=== PATIENT | female | born 1965 | race American Indian/Alaskan Native ===

== ENCOUNTER 2017-07-15 12:17 | Inpatient (IN) | payer MEDICAID, MEDICARE ==
[2017-07-15 12:24] VITALS: BMI 30.6
--- NOTE | 2017-07-15 13:08 | C.PDOC ---
History Of Present Illness 51 yo female w/PMHx of opioid abuse come in request heroin detox. Pt sts, last use of heroin was yesterday. Pt admits, using other different drugs. Otherwise, pt denies suicidal ideation or attempts. At present time, pt appears slightly anxious, saying " I did not had any drugs since yesterday'. Otherwise, pt deneis headache, dizziness, CP, SOB, dyspnea, diaphoresis, palpitation, abd. pain, N/V/D. Ambulatory in ED, not in any apparent distress. Time Seen by Provider: 07/15/17 12:34 Chief Complaint (Nursing): Substance Abuse History Per: Patient Past Medical History Reviewed: Historical Data, Nursing Documentation, Vital Signs Vital Signs: Last Vital Signs Temp 98.2 F 07/15/17 12:24 Pulse 88 07/15/17 12:24 Resp 18 07/15/17 12:24 BP 140/86 07/15/17 12:24 Pulse Ox 99 07/15/17 13:16 - Medical History PMH: Arthritis, Bronchitis, Hypothyroidism (NO MEDICATIONS), Kidney Stones ( LITHROTRYPSY DONE IN PAST), Chronic Kidney Disease Denies: Anxiety, Diabetes, Hepatitis, HIV, HTN, Seizures, Sexually Transmitted Disease Surgical History: Cholecystectomy, Endoscopy, - [facility] Procedures DETOXIFICATION SERVICES FOR SUBSTANCE ABUSE TREATMENT (10/26/16) GROUP PASSENGER SERVICE AGENT FOR SUBSTANCE ABUSE TREATMENT, PSYCHOEDUCATION (10/26/16) Family History: States: Unknown Family Hx - Social History Hx Alcohol Use: Yes Hx Substance Use: Yes (MARIJUANA USE) - Immunization History Hx Tetanus Toxoid Vaccination: No Hx Influenza Vaccination: No Hx Pneumococcal Vaccination: No Review Of Systems Except As Marked, All Systems Reviewed And Found Negative. Constitutional: Negative for: Fever, Chills Eyes: Negative for: Vision Change ENT: Negative for: Throat Pain, Throat Swelling Cardiovascular: Negative for: Chest Pain, Palpitations, Orthopnea, Paroxysmal Noc. Dyspnea, Light Headedness Respiratory: Negative for: Cough, Shortness of Breath, Wheezing Gastrointestinal: Negative for: Nausea, Vomiting, Abdominal Pain Genitourinary: Negative for: Frequency Neurological: Negative for: Altered Mental Status Psych: Positive for: Withdrawal. Negative for: Suicidal ideation Physical Exam - Physical Exam Appears: Well, Non-toxic, No Acute Distress Skin: Normal Color, Warm, Dry, No Rash Eye(s): bilateral: PERRL Nose: Normal Throat: No Drooling Neck: Supple Cardiovascular: Rhythm Regular Respiratory: No Decreased Breath Sounds, No Accessory Muscle Use, No Stridor, No Wheezing Gastrointestinal/Abdominal: Soft, No Tenderness, No Distention, No Guarding Back: No CVA Tenderness Extremity: Normal ROM, No Deformity, No Swelling Neurological/Psych: Oriented x3, Normal Speech ED Course And Treatment - Laboratory Results Result Diagrams: 07/15/17 13:16 07/15/17 13:16 O2 Sat by Pulse Oximetry: 99 Progress Note: On re-eavluation, pt remained stable, afebrile, hemodynamicaly stable. AAO#3, cooperative and appropriate. Blood work review and appears baseline. Pt was medically cleared for psych evaluation. children's service worker evaluated pt and admission to s/o recommend w/Dx: Acute opioid dependance. Disposition - Disposition Disposition: HOSPITALIZED Disposition Time: 14:47 Condition: STABLE Forms: [email or web address] (Welsh) - Clinical Impression Clinical Impression: Opioid abuse
[2017-07-15 13:22] LABS: BASO # 0.1 K/uL (0.0-0.2); BASO % 0.9 % (0.0-2.0); EOS # 0.1 K/uL (0.0-0.7); EOS % 0.7 % (0.0-4.0); HEMATOCRIT 41.4 % (34.0-47.0); LYMPH # 2.4 K/uL (1.0-4.3); LYMPH % 16.3 % (20.0-40.0); MEAN CELL VOLUME 99.1 fL (81.0-99.0); MEAN CORPUSCULAR HEMOGLOBIN 34.2 pg (27.0-31.0); MEAN CORPUSCULAR HGB CONC 34.5 g/dL (33.0-37.0); MEAN PLATELET VOLUME 10.4 fL (7.2-11.7); MONO % 7.2 % (0.0-10.0); RED CELL DISTRIBUTION WIDTH 12.7 % (11.5-14.5); WHITE BLOOD COUNT 14.5 K/uL (4.8-10.8)
[2017-07-15 13:38] LABS: CHLORIDE 100 mmol/L (98-107); POTASSIUM 4.2 mmol/L (3.6-5.2); SODIUM 139 mmol/L (132-148)
[2017-07-15 13:40] LABS: AST/SGOT 44 U/L (14-36); BILIRUBIN,TOTAL 0.8 mg/dL (0.2-1.3); CARBON DIOXIDE 25 mmol/L (22-30); GFR AFRICAN-AMERICAN > 60
[2017-07-15 13:41] LABS: ALB/GLOB RATIO 1.2 (1.0-2.1); ALCOHOL SERUM < 10 mg/dl (0-10); ALKALINE PHOSPHATASE 124 U/L (38-126); ALT/SGPT 37 U/L (9-52); BLOOD UREA NITROGEN 10 mg/dL (7-17); CALCIUM 9.5 mg/dl (8.6-10.4); GLUCOSE,RANDOM 96 mg/dL (65-105); TOTAL PROTEIN 8.3 g/dL (6.3-8.3)
[2017-07-15 13:43] LABS: RBC URINE 8 /hpf (0-3); URINE BACTERIA RARE (<OCC); URINE BILIRUBIN NEGATIVE (NEGATIVE); URINE BLOOD 2+ (NEGATIVE); URINE COLOR Yellow (YELLOW); URINE GLUCOSE (UA) NORMAL (Normal); URINE KETONE TRACE mg/dL (NEGATIVE); URINE LEUKOCYTE ESTERASE NEG Leu/uL (Negative); URINE PROTEIN NEGATIVE (NEGATIVE); WBC URINE 3 /hpf (0-5)
--- NOTE | 2017-07-15 13:43 | RAD ---
HISTORY: Detox/Psy COMPARISON: Chest x-ray 05/29/2011 TECHNIQUE: Chest PA and lateral FINDINGS: LUNGS: No focal consolidation is seen. PLEURA: No pleural effusion is identified. CARDIOVASCULAR: Heart size is within normal limits. OSSEOUS STRUCTURES: Visualized osseous structures are unremarkable. VISUALIZED UPPER ABDOMEN: Unremarkable. OTHER FINDINGS: None. IMPRESSION: No acute cardiopulmonary process seen.
[2017-07-15] MEDS ORDERED: Aluminum Hydroxide/Magnesium Hydroxide Susp (30 mL) PO PRN (14:49)
--- NOTE | 2017-07-15 16:52 | PCM.BM ---
<Violetta Casiano - Last Filed: 07/15/17 16:50> Treatment Plan Problems - Problems identified on initial assessmt Potential for Opiate Withdrawal Date Initiated: 07/15/17 Time Initiated: 16:51 Assessment reference: NA Status: Active Treatment assets and liabiliti Patient Assests: cooperative, ADL independent, negotiates basic needs, cognitively intact Patient Liabilities: substance abuse - Milieu Protocol Maintain good personal hygiene: daily Encourage regular showers, daily Remind patient to perform daily oral care, daily Assist patient to perform ADL's Conduct patient checks and document Observation sheet: Q15 minutes Maintain personal safety: every shift Educate patient to report safety concerns to staff, every shift Monitor environment for contraband/sharps Medication safety: Monitor for expected outcome, potential side effects: every shift, Assess barriers to learning: every shift, Assess readiness for medication education: every shift <Rachael Flynn - Last Filed: 07/16/17 12:30> Family Contact Family involvement: Family/SO is involved Family contact: Patient agrees to contact, Telephone contact initiated by staff Family contact name: Jose Family contacted how many times per week?: 5 - Goals for Treatment Patient goals for treatment: Complete detox and transition to long-term rehab. Discharge/Continuing Care - Education Needs Education Needs: Patient Medication, Patient Diagnosis/Disease Process, Patient Coping Skills, Patient Anger Management skills, Patient Placement options, Patient Community resources - Discharge Discharge Criteria: No longer exhibiting s/s of withdrawal, Reduction of target symptoms Discharge to:: Substance Abuse Rehab - Treatment Team Participation Patient/Family/SO Statement: 07/16/17 12:32 "I need to go right from here to rehab...I can't go home even for 1 day...I'm too weak." Discussed with Family/SO: No Was Patient/Family/SO present at Treatment Team Meeting: Yes <Olga Thomas - Last Filed: 07/18/17 17:29> - Diagnosis (1) Opioid abuse Status: Acute Interventions: 07/18/17 17:28 * Assess 7x/week regarding severity of withdrawal * Educate regarding risks, benefits, side effects and alternatives of medications * Use Motivational Interviewing for abstinence * Use CBT for relapse prevention * Medication management for withdrawal symptoms * Encourage medication assisted treatment * (2) Multiple substance abuse Status: Acute Interventions: 07/18/17 17:28 * Assess 7x/week regarding severity of withdrawal * Educate regarding risks, benefits, side effects and alternatives of medications * Use Motivational Interviewing for abstinence * Use CBT for relapse prevention * Medication management for withdrawal symptoms * Encourage medication assisted treatment *
[2017-07-15] MEDS ORDERED: Buprenorphine Hydrochloride 2 mg SL ONE ×3 (17:45→21:30)
[2017-07-15] MEDS ORDERED: Magnesium Sulfate 1 gm in D5W 1 GM/100 ML BAG IVPB SCH (23:00)
[2017-07-15] MEDS: Magnesium Oxide 400 mg Tab UD PO SCH (23:27)
[2017-07-16] MEDS: Buprenorphine Hydrochloride 2 mg SL SCH (09:32)
[2017-07-16] MEDS: Magnesium Oxide 400 mg Tab UD PO SCH (09:32)
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
--- NOTE | 2017-07-16 18:11 | PCM.PYCHPN ---
Psychiatric Progress Note - Psychiatric Progress Note Patient seen today, length of contact: 16 min Patient Chief Complaint: "I am not well" Problems Identified/Issues Discussed: The pt is seen, chart reviewed, case discussed with staff. The pt is compliant with medications and reports no side-effects. Symptoms are improving but needs more time to stabilize. After care discussed, support and psychoeducation given. She is fixated on NOT going anywhere but rehab directly from here Medication Change: Yes (detox changes daily) Medical Record Reviewed: Yes Mental Status Examination - Cognitive Function Orientation: Person, Place, Situation, Time Memory: Intact Attention: WNL Concentration: Poor Association: WNL Fund of Knowledge: WNL - Mood Mood: Anxious - Affect Affect: Constricted - Speech Speech: Appropriate - Formal Thought Process Formal Thought Process: No Impairment - Suicidal Ideation Suicidal Ideation: No - Homicidal Ideation Homicidal Ideation: No Goal/Treatment Plan - Goal/Treatment Plan Need for Continued Stay: Discharge may exacerbated symptoms, Severe functional impairment Progress Toward Problem(s) and Goals/Treatment Plan: Opioids: - Subutex detox, but due to prolonged QTc we will use slow and low taper - As needed meds - Support and psychoed - Attend groups and activities - ID and CBT (Sed, hyp, anx d/o) Benzos: - Librium detox - As needed meds - Support and psychoed - Attend groups and activities - ID and CBT Cocaine: - Gabapentin. - ID for abstinence and relapse prevention Cannabis: - Same as cocaine NIcotine: - Patch - ID SLE and others: - Resume medical meds Referral: - She is interested in inpatient rehab at [facility] - Consider MAT for opioids after detox QTc: Cardio consult appreciated ECHO done Estimated Date of D/C: 07/21/17
--- NOTE | 2017-07-16 19:25 | CP.PCM.CON ---
History of Present Illness - History of Present Illness History of Present Illness: ASKED TO SEE PT BY DR OVALLES FOR ABN EKG (PROLONGED QTC) PTS QTC IS 473. PT DENIES, SYNCOPE. SHE DOES HAVE LH EPISODES ON OCCASION HOWEVER SHE DOES USE MULTIPLE NARCOTICS. PT HAS CP AT TIMES WHEN LAYING DOWN, NOT EXAC BY MOVEMENT. NO GREENBERG, ORTHOPNEA, PND. NO FAM HX OF SCD OR CAD. PT DOES SMOKE REGULARLY. Review of Systems - Constitutional Constitutional: As Per HPI. absent: Anorexia, Chills, Daytime Sleepiness, Excessive Sweating, Fatigue, Fever, Frequent Falls, Headache, Increased Appetite , Lethargy, Malaise, Night Sweats, Snoring, Sleep Apnea, Weight Gain, Weight Loss, Weakness, Other - EENT Eyes: As Per HPI. absent: Blind Spots, Blurred Vision, Change in Vision, Decreased Night Vision, Diplopia, Discharge, Dry Eye, Exophthalmos, Floaters, Irritation, Itchy Eyes, Loss of Peripheral Vision, Pain, Photophobia, Requires Corrective Lenses, Sees Flashes, Spots in Vision, Tunnel Vision, Other Visual Disturbances, Loss of Vision, Other Ears: As Per HPI. absent: Decreased Hearing, Ear Discharge, Ear Pain, Tinnitus , Abnormal Hearing, Disequilibrium, Dizziness, Other Nose/Mouth/Throat: As Per HPI. absent: Epistaxis, Nasal Congestion, Nasal Discharge, Nasal Obstruction, Nasal Trauma, Nose Pain, Post Nasal Drip, Sinus Pain, Sinus Pressure, Bleeding Gums, Change in Voice, Dental Pain, Dry Mouth, Dysphagia, Halitosis, Hoarsness, Lip Swelling, Mouth Lesions, Mouth Pain, Odynophagia, Sore Throat, Throat Swelling, Tongue Swelling, Facial Pain, Neck Pain, Neck Mass, Other - Breasts Breasts: As Per HPI. absent: Change in Shape, Mass, Pain, Nipple Discharge, Nipple Inversion, Skin Changes, Swelling, Other - Cardiovascular Cardiovascular: Chest Pain at Rest. absent: As Per HPI, Acrocyanosis, Chest Pain, Chest Pain with Activity, Claudication, Diaphoresis, Dyspnea, Dyspnea on Exertion, Edema, Irregular Heart Rhythm, Pain Radiating to Arm/Neck/Jaw, Leg Edema, Leg Ulcers, Lightheadedness, Orthopnea, Palpitations, Paroxysmal Nocturnal Dyspnea, Pedal Edema, Radiating Pain, Rapid Heart Rate, Slow Heart Rate, Syncope, Other - Respiratory Respiratory: As Per HPI. absent: Cough, Dyspnea, Hemoptysis, Dyspnea on Exertion, Wheezing, Snoring, Stridor, Pain on Inspiration, Chest Congestion, Excessive Mucous Production, Change in Mucous Color, Pain with Coughing, Other - Gastrointestinal Gastrointestinal: As Per HPI. absent: Abdominal Pain, Belching, Bloating, Change in Bowel Habits, Change in Stool Character, Coffee Ground Emesis, Constipation, Cramping, Diarrhea, Dyspepsia, Dysphagia, Early Satiety, Excessive Flatus, Fecal Incontinence, Heartburn, Hematemesis, Hematochezia, Loose Stools, Melena, Nausea, Odynophagia, Temesmus, Vomiting, Other - Genitourinary Genitourinary: As Per HPI. absent: Change in Urinary Stream, Difficulty Urinating, Dysuria, Flank Pain, Hematuria, Pyuria, Nocturia, Urinary Incontinence, Urinary Frequency, Urinary Hesitance, Urinary Urgency, Voiding Freq/Small Amts, Freq UTI, Hx Renal/Bladder Calculi, Hx /Renal Surgery, Bladder Distension, Other - Reproductive: Female Reproductive:Female: As Per HPI. absent: Amenorrhea, Amenorrhea/ Control, Currently Menstual, Cycle <21 Days, Cycle >35 Days, Cycle Variable, Menses 1-7 Days, Menses >/= 8 Days, Menses Variable, Cycle > 4 Weeks Between, No Menses for 6 Months, Heavy Menses, Light Menses, Normal Menses, Spotting Between Cycles , S/P Hysterectomy, Menopausal, Post Menopausal, Premenarche, Abnormal Vaginal Bleeding, Dysmenorrhea, Dyspareunia, Genital Lesions, Genital Pruritis, Pelvic Pain, Prolapse Symptoms, Sexual Dysfunction, Vaginal Discharge, Vaginal Dryness , Vaginal Odor, Vaginal Pruritis, Other - Menstruation Menstruation: As Per HPI. absent: Amenorrhea, Amenorrhea/ Control, Currently Menstual, Cycle <21 Days, Cycle >35 Days, Cycle Variable, Menses 1-7 Days, Menses >/= 8 Days, Menses Variable, Cycle > 4 Weeks Between, No Menses for 6 Months, Heavy Menses, Light Menses, Normal Menses, Spotting Between Cycles , S/P Hysterectomy, Menopausal, Post Menopausal, Premenarche, Abnormal Vaginal Bleeding, Dysmenorrhea, Other - Musculoskeletal Musculoskeletal: As Per HPI. absent: Abnormal Gait, Arthralgias, Atrophy, Back Pain, Deformity, Joint Swelling, Limited Range of Motion, Loss of Height, Muscle Cramps, Muscle Weakness, Myalgias, Neck Pain, Numbness, Radiating Pain into Limb, Stiffness, Tingling, Other - Integumentary Integumentary: As Per HPI. absent: Acne, Alopecia, Bleeding Lesions, Change in Hair, Change in Nails, Change in Pigmentation, Changing Lesions, Dry Skin, Erythema, Furuncle, Hirsutism, Lesions, New Lesions, Non-Healing Lesions, Photosensitivity, Pruritus, Rash, Skin Pain, Skin Ulcer, Sores, Striae, Swelling , Unusual Bruising, Wounds, Jaundice, Other - Neurological Neurological: As Per HPI, Dizziness. absent: Abnormal Gait, Abnormal Hearing, Abnormal Movements, Abnormal Speech, Behavioral Changes, Burning Sensations, Confusion, Convulsions, Disequilibrium, Numbness, Focal Weakness, Frequent Falls , Headaches, Lack of Coordination, Loss of Vision, Memory Loss, Paresthesias, Radicular Pain, Restless Legs, Sensory Deficit, Syncope, Tingling, Tremor, Vertigo, Weakness, Other Visual Disturbances, Other - Psychiatric Psychiatric: As Per HPI, Depression - Endocrine Endocrine: As Per HPI. absent: Change in Body Appearance, Change in Libido, Cold Intolorance, Deepening of Voice, Excessive Sweating, Fatigue, Flushing, Heat Intolorance, Increase in Ring/Shoe/Hat Size, Palpitations, Polydipsia, Polyphagia, Polyuria, Other - Hematologic/Lymphatic Hematologic: As Per HPI. absent: Easy Bleeding, Easy Bruising, Lymphadenopathy , Other Past Patient History - Infectious Disease Hx of Infectious Diseases: None - Past Medical History & Family History Past Medical History?: Yes - Past Social History Smoking Status: Heavy Smoker > 10 Cigarettes Daily Chewing Tobacco Use: No Cigar Use: No Alcohol: None Drugs: Opiates - CARDIAC Hx Cardiac Disorders: Yes Hx Hypertension: No - PULMONARY Hx Respiratory Disorders: Yes Hx Bronchitis: Yes - NEUROLOGICAL Hx Neurological Disorder: No Hx Seizures: No - HEENT Hx HEENT Problems: Yes Other/Comment: SAESONAL ALLERGIES - RENAL Hx Chronic Kidney Disease: Yes Hx Kidney Stones: Yes (LITHROTRYPSY DONE IN PAST) - ENDOCRINE/METABOLIC Hx Hypothyroidism: Yes (NO MEDICATIONS) Hx Systemic Lupus Erythematosus: Yes - HEMATOLOGICAL/ONCOLOGICAL Hx Blood Transfusions: No Hx Human Immunodeficiency Virus (HIV): No - INTEGUMENTARY Hx Dermatological Problems: Yes Other/Comment: LUPUS - MUSCULOSKELETAL/RHEUMATOLOGICAL Hx Musculoskeletal Disorders: Yes Hx Arthritis: Yes Hx Falls: Yes - GASTROINTESTINAL Hx Gastrointestinal Disorders: Yes (H PYLORI,POLYPS REMOVED COLON,DYSPEPSIA) Hx Gastroesophageal Reflux: Yes - GENITOURINARY/GYNECOLOGICAL Hx Genitourinary Disorders: No Hx Sexually Transmitted Disorders: No - PSYCHIATRIC Hx Psychophysiologic Disorder: Yes Hx Anxiety: No Hx Depression: Yes Hx Substance Use: Yes (MARIJUANA USE) - SURGICAL HISTORY Hx Surgeries: Yes Hx Cholecystectomy: Yes Other/Comment: Hx of x2 - ANESTHESIA Hx Anesthesia: Yes Hx Anesthesia Reactions: No Hx Malignant Hyperthermia: No Meds Allergies/Adverse Reactions: Allergies Allergy/AdvReac Type Severity Reaction Status Date / Time mushroom Allergy Mild Verified 07/15/17 12:22 - Medications Medications: Current Medications Al Hydrox/Mg Hydrox/Simethicone (Maalox 30 Ml) 30 ml PO TID PRN PRN Reason: Indigestion / Heartburn Buprenorphine HCl (Subutex) 6 mg SL DAILY [facility] PRN Reason: Taper Stop: 07/19/17 09:59 Last Admin: 07/16/17 09:32 Dose: 6 mg Chlordiazepoxide (Librium) 25 mg PO Q4H PRN PRN Reason: Alcohol Withdrawal Chlordiazepoxide (Librium) 25 mg PO Q6 [facility] PRN Reason: Taper Stop: 07/22/17 15:29 Last Admin: 07/16/17 18:40 Dose: 25 mg Clonidine HCl (Catapres) 0.1 mg PO Q8 PRN PRN Reason: COWS Score More or Equal to 5 Dicyclomine HCl (Bentyl) 10 mg PO Q6H PRN PRN Reason: Muscle spasm Last Admin: 07/15/17 23:01 Dose: 10 mg Gabapentin (Neurontin) 300 mg PO TID [facility] Last Admin: 07/16/17 17:16 Dose: 300 mg Hydroxychloroquine Sulfate (Plaquenil) 200 mg PO TID [facility] Last Admin: 07/16/17 17:16 Dose: 200 mg Hydroxyzine HCl (Atarax) 50 mg PO Q6H PRN PRN Reason: Anxiety Ibuprofen (Motrin Tab) 600 mg PO Q6H PRN PRN Reason: Pain, moderate (4-7) Loperamide HCl (Imodium) 2 mg PO Q8 PRN PRN Reason: Diarrhea Magnesium Oxide (Mag-Ox) 400 mg PO DAILY [facility] Last Admin: 07/16/17 09:32 Dose: 400 mg Montelukast Sodium (Singulair) 10 mg PO DAILY [facility] Last Admin: 07/16/17 09:32 Dose: 10 mg Nicotine (Nicoderm Cq) 1 patch TD DAILY [facility] Last Admin: 07/16/17 18:40 Dose: 1 patch Ondansetron HCl (Zofran Tab) 4 mg PO Q8 PRN PRN Reason: Nausea/Vomiting Trazodone HCl (Desyrel) 100 mg PO HS PRN PRN Reason: Insomnia Last Admin: 07/15/17 23:00 Dose: 100 mg Physical Exam - Constitutional Appears: Non-toxic - Head Exam Head Exam: ATRAUMATIC, NORMAL INSPECTION, NORMOCEPHALIC - Eye Exam Eye Exam: EOMI, Normal appearance, PERRL. absent: Conjunctival injection, Nystagmus, Periorbital swelling, Periorbital tenderness, Scleral icterus Pupil Exam: NORMAL ACCOMODATION, PERRL. absent: Fixed, Irregular, Miosis, Mydriatic, Unequal - ENT Exam ENT Exam: Mucous Membranes Moist, Normal Exam. absent: Mucous Membranes Dry, Normal External Ear Exam, Normal Oropharynx, TM's Normal Bilaterally - Respiratory Exam Respiratory Exam: Clear to Auscultation Bilateral, NORMAL BREATHING PATTERN. absent: Accessory Muscle Use, Chest Wall Tenderness, Decreased Breath Sounds, Prolonged Expiratory Phase, Rales, Rhonchi, Wheezes, Respiratory Distress, Stridor - Cardiovascular Exam Cardiovascular Exam: REGULAR RHYTHM, +S1, +S2, Systolic Murmur. absent: Bradycardia, Tachycardia, Clicks, Diastolic murmur, Gallop, Irregular Rhythm, JVD, RRR, Rubs, +S4 - GI/Abdominal Exam GI & Abdominal Exam: Normal Bowel Sounds, Soft. absent: Bruit, Diminished Bowel Sounds, Distended, Firm, Guarding, Hernia, Hyperactive Bowel Sounds, Hypoactive Bowel Sounds, Mass, Organomegaly, Pulsatile Mass, Rebound, Rigid, Tenderness - Rectal Exam Rectal Exam: Deferred - Extremities Exam Extremities exam: Positive for: normal inspection. Negative for: calf tenderness, full ROM, joint swelling, normal capillary refill, pedal edema, tenderness, pedal pulses present - Back Exam Back exam: NORMAL INSPECTION. absent: CVA tenderness (L), CVA tenderness (R), FULL ROM, muscle spasm, paraspinal tenderness, rash noted, tenderness, vertebral tenderness - Neurological Exam Neurological exam: Abnormal Gait, Alert, Altered, CN II-XII Intact, Motor Sensory Deficit, Normal Gait, Oriented x3, Reflexes Normal - Psychiatric Exam Psychiatric exam: Normal Affect, Normal Mood - Skin Skin Exam: Dry, Intact, Normal Color, Warm Results - Vital Signs Recent Vital Signs: Last Vital Signs Temp 98.4 F 07/16/17 16:55 Pulse 70 07/16/17 16:55 Resp 18 07/16/17 16:55 BP 124/82 07/16/17 16:55 Pulse Ox 96 07/16/17 16:55 - Labs Result Diagrams: 07/15/17 13:16 07/15/17 13:16 - EKG Data EKG Interpreted by: Myself EKG shows normal: Sinus rhythm Rate: Normal Assessment & Plan (1) Abnormal EKG Status: Acute (2) Prolonged Q-T interval on ECG Status: Acute (3) HTN (hypertension) Status: Acute (4) Chest pain, non-cardiac Status: Acute (5) Multiple substance abuse Status: Acute - Assessment and Plan (Free Text) Plan: PTS QTC IS NOT CONCERNING AT 472. WOULD MONITOR IT IF PT HAS SYMPTOMS. PT HAS NOT HAD SYNCOPAL EVENT NOR DOES SHE HAVE FAM HX OF SCD. I REVIEWED THE ECHO IMAGES. HER EF IS UNDERMEASURED AND APPEARS TO BE 50-55%, NO SIG VALVULAR ABN. SHE IS NOT ON ANY QT PROLONGING MEDICATIONS. SHE HAS A HX OF HYPOTHYROIDISM. RECOMMEND CHECKING TSH. ALSO MONITOR LYTES MAG K. WILL SIGN OFF. PLEASE RECALL IF NEEDED.
--- NOTE | 2017-07-16 23:36 | CARD ---
APPROVED REPORT EXAM: Two-dimensional and M-mode echocardiogram with Doppler and color Doppler. Other Information Quality : Good[employer] : INDICATION ACUTE OPIOID DEPENDENCE 2D DIMENSIONS IVSd0.9 (0.7-1.1cm)LVDd5.1 (3.9-5.9cm) PWd1.0 (0.7-1.1cm)LVDs3.7 (2.5-4.0cm) FS (%) 26.9 %LVEF (%)52.2 (>50%) M-Mode DIMENSIONS Left Atrium (MM)3.13 (2.5-4.0cm)Aortic Root3.29 (2.2-3.7cm) Mitral Valve MV E Ccehaesg60.0cm/sMV A Hjonhooo88.3cm/sE/A ratio0.8 TDI E/Lateral E'0.0E/Medial E'0.0 Tricuspid Valve TR Peak [id number]/sTR Peak Gr.[id number] LEFT VENTRICLE The left ventricle is normal size. There is normal left ventricular wall thickness. Left ventricle systolic function is normal. The Ejection Fraction is 50-55%. There is normal LV segmental wall motion. Tissue Doppler imaging reveals abnormal left ventricular diastolic dysfunction. No left ventricle thrombus noted on this study. RIGHT VENTRICLE The right ventricle is normal size. There is normal right ventricular wall thickness. The right ventricular systolic function is normal. ATRIA The left atrium size is normal. The right atrium size is normal. The interatrial septum is intact with no evidence for an atrial septal defect. AORTIC VALVE The aortic valve is normal in structure. No aortic regurgitation is present. There is no aortic valvular stenosis. There is no aortic valvular vegetation. MITRAL VALVE The mitral valve is normal in structure. There is no evidence of mitral valve prolapse. There is no mitral valve stenosis. There is no mitral valve regurgitation noted. TRICUSPID VALVE The tricuspid valve is normal in structure. There is trace to mild tricuspid regurgitation. Right ventricular systolic pressure is estimated at less than 30 mmHg. There is no pulmonary hypertension. There is no tricuspid valve prolapse or vegetation. There is no tricuspid valve stenosis. PULMONIC VALVE The pulmonic valve is not well visualized. There is no pulmonic valvular regurgitation. GREAT VESSELS The aortic root is normal in size. PERICARDIAL EFFUSION There is no significant pericardial effusion. <Conclusion> Left ventricle systolic function is normal. The Ejection Fraction is 50-55%. Diastolic dysfunction. No aortic regurgitation is present. There is no mitral valve regurgitation noted. There is trace to mild tricuspid regurgitation. There is no pulmonary hypertension. There is no pulmonic valvular regurgitation.
[2017-07-17] MEDS: Buprenorphine Hydrochloride 2 mg SL SCH (09:30)
[2017-07-17] MEDS: Magnesium Oxide 400 mg Tab UD PO SCH (09:30)
--- NOTE | 2017-07-17 11:35 | PCM.PYCHPN ---
Psychiatric Progress Note - Psychiatric Progress Note Patient seen today, length of contact: 15 min Patient Chief Complaint: "I feel pretty good" Problems Identified/Issues Discussed: Pt is seen, chart reviewed, case discussed with staff. Pt is compliant with medications and reports no side effects. She denies cramps, diarrhea, vomiting, anxiety and depression. She has no complaints at this time. Symptoms are improving but pt needs more time to stabilize. She is in a pleasant mood and states that she spoke with her family who are very glad that she is here. Support and psychoeducation given, CBT and NM used briefly. After care discussed. [facility] does not have an available bed but she is working with counselors and her [employer] worker to find another program. Medication Change: Yes (Detox changes daily) Medical Record Reviewed: Yes Mental Status Examination - Cognitive Function Orientation: Person, Place, Situation, Time Memory: Intact Attention: WNL Concentration: WNL Association: WNL Fund of Knowledge: WNL - Mood Mood: Anxious - Affect Affect: Constricted - Speech Speech: Appropriate - Formal Thought Process Formal Thought Process: No Impairment - Suicidal Ideation Suicidal Ideation: No - Homicidal Ideation Homicidal Ideation: No Goal/Treatment Plan - Goal/Treatment Plan Need for Continued Stay: Discharge may exacerbated symptoms, Severe functional impairment Progress Toward Problem(s) and Goals/Treatment Plan: Opioids: - Subutex detox, but due to prolonged QTc we will use slow and low taper - As needed meds - Support and psychoed - Attend groups and activities - NM and CBT (Sed, hyp, anx d/o) Benzos: - Librium detox - As needed meds - Support and psychoed - Attend groups and activities - NM and CBT Cocaine: - Gabapentin. - NM for abstinence and relapse prevention Cannabis: - Same as cocaine NIcotine: - Patch - NM SLE and others: - Resume medical meds Referral: - She is interested in inpatient rehab at [facility] - Consider MAT for opioids after detox QTc: Cardio consult appreciated ECHO done Estimated Date of D/C: 07/21/17 (Pt needs more time to stabilize)
[2017-07-18] MEDS: Magnesium Oxide 400 mg Tab UD PO SCH (10:15)
[2017-07-18] MEDS: Buprenorphine Hydrochloride 2 mg SL SCH (10:16)
--- NOTE | 2017-07-18 15:02 | PCM.PYCHPN ---
Psychiatric Progress Note - Psychiatric Progress Note Patient seen today, length of contact: 16 min Patient Chief Complaint: "I am sleeping better" Problems Identified/Issues Discussed: Pt is seen, chart reviewed, case discussed with staff. Pt is compliant with medications and reports no side effects. Today she reports that she slept well and has no complaints. Symptoms are improving but pt needs more time to stabilize. Support and psychoeducation given, CBT and MA used briefly. She is in a happy mood because she spoke with her daughter who expressed love, support and encouragement. After care discussed. She reports that there are no beds at [facility] but she will work with counselors today for placement at [facility] or [facility]. Medication Change: Yes (Detox changes daily) Medical Record Reviewed: Yes Mental Status Examination - Cognitive Function Orientation: Person, Place, Situation, Time Memory: Intact Attention: WNL Concentration: WNL Association: WNL Fund of Knowledge: WNL - Mood Mood: Neutral - Affect Affect: Constricted - Speech Speech: Appropriate - Formal Thought Process Formal Thought Process: No Impairment - Suicidal Ideation Suicidal Ideation: No - Homicidal Ideation Homicidal Ideation: No Goal/Treatment Plan - Goal/Treatment Plan Need for Continued Stay: Discharge may exacerbated symptoms, Severe functional impairment Progress Toward Problem(s) and Goals/Treatment Plan: Opioids: - Subutex detox, but due to prolonged QTc we will use slow and low taper - As needed meds - Support and psychoed - Attend groups and activities - MA and CBT (Sed, hyp, anx d/o) Benzos: - Librium detox - As needed meds - Support and psychoed - Attend groups and activities - MA and CBT Cocaine: - Gabapentin. - MA for abstinence and relapse prevention Cannabis: - Same as cocaine NIcotine: - Patch - MA SLE and others: - Resume medical meds Referral: - She is interested in inpatient rehab at [facility] - Consider MAT for opioids after detox QTc: Cardio consult appreciated ECHO done Estimated Date of D/C: 07/21/17 (Pt needs more time to stabilize)
[2017-07-18] MEDS ORDERED: Magnesium Hydroxide Susp 30 ml UD ONE (19:36)
[2017-07-19 08:45] LABS: BASO # 0.1 K/uL (0.0-0.2); BASO % 1.1 % (0.0-2.0); EOS # 0.2 K/uL (0.0-0.7); EOS % 2.8 % (0.0-4.0); HEMATOCRIT 38.2 % (34.0-47.0); LYMPH # 2.6 K/uL (1.0-4.3); LYMPH % 43.3 % (20.0-40.0); MEAN CELL VOLUME 100.5 fL (81.0-99.0); MEAN CORPUSCULAR HEMOGLOBIN 33.6 pg (27.0-31.0); MEAN CORPUSCULAR HGB CONC 33.4 g/dL (33.0-37.0); MONO # 0.6 K/uL (0.0-0.8); MONO % 9.5 % (0.0-10.0); NRBC % 0.1 % (0.0-2.0); RED CELL DISTRIBUTION WIDTH 12.7 % (11.5-14.5); WHITE BLOOD COUNT 6.1 K/uL (4.8-10.8)
[2017-07-19 08:47] LABS: CHLORIDE 100 mmol/L (98-107); POTASSIUM 3.6 mmol/L (3.6-5.2); SODIUM 140 mmol/L (132-148)
[2017-07-19 08:49] LABS: BILIRUBIN,TOTAL 0.4 mg/dL (0.2-1.3); CARBON DIOXIDE 32 mmol/L (22-30); GFR AFRICAN-AMERICAN > 60
[2017-07-19 08:50] LABS: ALB/GLOB RATIO 1.2 (1.0-2.1); ALKALINE PHOSPHATASE 84 U/L (38-126); ALT/SGPT 29 U/L (9-52); AST/SGOT 23 U/L (14-36); BLOOD UREA NITROGEN 9 mg/dL (7-17); GLUCOSE,RANDOM 73 mg/dL (65-105); TOTAL PROTEIN 6.4 g/dL (6.3-8.3)
[2017-07-19 09:10] LABS: FREE T4 0.9 ng/dL (0.78-2.19)
[2017-07-19 09:25] LABS: THYROID STIMULATING HORMONE 1.55 mIU/L (0.46-4.68)
[2017-07-19] MEDS: Magnesium Hydroxide Susp 30 ml UD PO PRN ×2 (10:00→20:22)
[2017-07-19] MEDS: Magnesium Oxide 400 mg Tab UD PO SCH (10:00)
--- NOTE | 2017-07-19 11:35 | PCM.PYCHPN ---
Psychiatric Progress Note - Psychiatric Progress Note Patient seen today, length of contact: 16 min Patient Chief Complaint: "I threw up" Problems Identified/Issues Discussed: The pt is seen, chart reviewed, case discussed with staff. The pt is compliant with medications and reports no side-effects. Symptoms are improving but needs more time to stabilize. After care discussed, support and psychoeducation given. NV discussed. her labs are OK. Some measures taken. Medication Change: Yes (Detox changes daily) Medical Record Reviewed: Yes Mental Status Examination - Cognitive Function Orientation: Person, Place, Situation, Time Memory: Intact Attention: WNL Concentration: WNL Association: WNL Fund of Knowledge: WNL - Mood Mood: Neutral - Affect Affect: Constricted - Speech Speech: Appropriate - Formal Thought Process Formal Thought Process: No Impairment - Suicidal Ideation Suicidal Ideation: No - Homicidal Ideation Homicidal Ideation: No Goal/Treatment Plan - Goal/Treatment Plan Need for Continued Stay: Discharge may exacerbated symptoms, Severe functional impairment Progress Toward Problem(s) and Goals/Treatment Plan: Opioids: - Subutex detox, but due to prolonged QTc we will use slow and low taper - As needed meds - Support and psychoed - Attend groups and activities - MD and CBT (Sed, hyp, anx d/o) Benzos: - Librium detox - As needed meds - Support and psychoed - Attend groups and activities - MD and CBT Cocaine: - Gabapentin. - MD for abstinence and relapse prevention Cannabis: - Same as cocaine NIcotine: - Patch - MD SLE and others: - Resume medical meds Referral: - She is interested in inpatient rehab at [facility] - Consider MAT for opioids after detox QTc: Cardio consult appreciated ECHO done Estimated Date of D/C: 07/21/17 (Pt needs more time to stabilize)
[2017-07-19] MEDS: Pantoprazole 20 mg EC Tab PO SCH (12:59)
[2017-07-19] MEDS ORDERED: Magnesium Citrate Oral SOL (300 ml) PO ONE (16:41)
--- NOTE | 2017-07-20 06:46 | CARD ---
APPROVED REPORT EKG Measurement Heart [id number] <Conclusion> Normal sinus rhythm Nonspecific T wave abnormality Prolonged QT Abnormal ECG
[2017-07-20] MEDS: Pantoprazole 20 mg EC Tab PO SCH (09:18)
[2017-07-20] MEDS: Magnesium Oxide 400 mg Tab UD PO SCH (09:18)
--- NOTE | 2017-07-20 12:46 | PCM.PYCHPN ---
Psychiatric Progress Note - Psychiatric Progress Note Patient seen today, length of contact: 16 min Patient Chief Complaint: "I am fatigued" Problems Identified/Issues Discussed: The pt is seen, chart reviewed, case discussed with staff. Support given, CBT and AL used briefly No new symptoms reported, improving slowly and needs more time No SEs from medications, risks discussed. After care discussed Medication Change: Yes (Detox changes daily) Medical Record Reviewed: Yes Mental Status Examination - Cognitive Function Orientation: Person, Place, Situation, Time Memory: Intact Attention: WNL Concentration: WNL Association: WNL Fund of Knowledge: WNL - Mood Mood: Neutral - Affect Affect: Constricted - Speech Speech: Appropriate - Formal Thought Process Formal Thought Process: No Impairment - Suicidal Ideation Suicidal Ideation: No - Homicidal Ideation Homicidal Ideation: No Goal/Treatment Plan - Goal/Treatment Plan Need for Continued Stay: Discharge may exacerbated symptoms, Severe functional impairment Progress Toward Problem(s) and Goals/Treatment Plan: Opioids: - Subutex detox, but due to prolonged QTc we will use slow and low taper - As needed meds - Support and psychoed - Attend groups and activities - AL and CBT (Sed, hyp, anx d/o) Benzos: - Librium detox - As needed meds - Support and psychoed - Attend groups and activities - AL and CBT Cocaine: - Gabapentin. - AL for abstinence and relapse prevention Cannabis: - Same as cocaine NIcotine: - Patch - AL SLE and others: - Resume medical meds Referral: - She is interested in inpatient rehab at [facility] - Consider MAT for opioids after detox QTc: Cardio consult appreciated ECHO done Estimated Date of D/C: 07/21/17 (Pt needs more time to stabilize)
[2017-07-20] MEDS ORDERED: Vitamins A & D Oint UD Foilpak TOP ONE (21:39)
[2017-07-21 06:22] VITALS: RESP 18; TEMP 97.9
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
[2017-07-21] MEDS: Pantoprazole 20 mg EC Tab PO SCH (09:01)
[2017-07-21] MEDS: Magnesium Oxide 400 mg Tab UD PO SCH (09:02)
[2017-07-21 09:17] VITALS: BP 126/84; PULSE 72; O2SAT 100
[2017-07-21] MEDS ORDERED: Vitamins A & D Oint UD Foilpak TOP ONE (21:35)
== END 2017-07-21 09:35 | disposition home or self-care (01) | DRG 744 ==
LOC: C.ER 12:17 → C.7D 14:46
PROVIDERS: ADMIT Psychiatry & Neurology Psychiatry; ATTEND Psychiatry & Neurology Psychiatry
PROC: HZ2ZZZZ Detoxification Services for Substance Abuse Treatment (ICD-10-PCS; principal; 2017-07-15)
PROC: GZ56ZZZ Individual Psychotherapy, Supportive (ICD-10-PCS; 2017-07-15)
DX: F11.23 Opioid dependence with withdrawal (principal); M32.9 Systemic lupus erythematosus, unspecified; N18.9 Chronic kidney disease, unspecified; F17.210 Nicotine dependence, cigarettes, uncomplicated; F12.90 Cannabis use, unspecified, uncomplicated; F14.90 Cocaine use, unspecified, uncomplicated; F19.10 Other psychoactive substance abuse, uncomplicated; F32.89 Other specified depressive episodes

== ENCOUNTER 2018-10-30 22:11 | Emergency (ER) | payer MEDICAID | END 2018-10-31 02:17 | disposition home or self-care (01) | LOC: C.ER 10-31 02:17 ==

== ENCOUNTER 2019-01-18 10:13 | Inpatient (IN) | payer MEDICAID ==
[2019-01-18 10:13] VITALS: BMI 30.6
--- NOTE | 2019-01-18 13:07 | C.PDOC ---
History Of Present Illness 53 y/o female,w/PMhx of lupus, presents to the ER requesting detox from heroin. Patient states that she sniffs heroin 5 bags per day. Patient reports that her last use was at 10 pm last night. She notes that she has some nausea. Denies having suicidal ideation, homicidal ideation, fever,chills, vomiting, and abdominal pain. Time Seen by Provider: 01/18/19 11:45 Chief Complaint (Nursing): Substance Abuse History Per: Patient History/Exam Limitations: no limitations Onset/Duration Of Symptoms: Days Current Symptoms Are (Timing): Still Present Severity: Moderate Past Medical History Vital Signs: Last Vital Signs Temp 98.1 F 01/18/19 10:26 Pulse 71 01/18/19 10:26 Resp 18 01/18/19 10:26 BP 148/94 H 01/18/19 10:26 Pulse Ox 97 01/18/19 10:26 - Medical History PMH: Arthritis, Bronchitis, Depression, Hypothyroidism, Kidney Stones, Chronic Kidney Disease Denies: Anxiety, Diabetes, Hepatitis, HIV, HTN, Seizures, Sexually Transmitted Disease Surgical History: Cholecystectomy, Endoscopy, - [facility] Procedures DETOXIFICATION SERVICES FOR SUBSTANCE ABUSE TREATMENT (07/15/17) GROUP ZIGZAG TOPSTITCHER FOR SUBSTANCE ABUSE TREATMENT, PSYCHOEDUCATION (10/26/16) INDIVIDUAL PSYCHOTHERAPY, SUPPORTIVE (07/15/17) Family History: States: Unknown Family Hx - Social History Hx Alcohol Use: No Hx Substance Use: Yes - Immunization History Hx Tetanus Toxoid Vaccination: No Hx Influenza Vaccination: No Hx Pneumococcal Vaccination: No Review Of Systems Constitutional: Negative for: Fever, Chills Cardiovascular: Negative for: Chest Pain Respiratory: Negative for: Cough, Shortness of Breath Gastrointestinal: Positive for: Nausea. Negative for: Vomiting, Abdominal Pain Musculoskeletal: Negative for: Back Pain Skin: Negative for: Rash Neurological: Negative for: Weakness, Numbness Physical Exam - Physical Exam Appears: No Acute Distress Skin: Normal Color, Warm, Dry Head: Atraumatic, Normacephalic Eye(s): bilateral: Normal Inspection Nose: Normal Oral Mucosa: Moist Neck: Supple Chest: Symmetrical Cardiovascular: Rhythm Regular Respiratory: No Rales, No Rhonchi, No Wheezing Gastrointestinal/Abdominal: Bowel Sounds (normal bowel sounds), Soft, No Tenderness, No Guarding, No Rebound Neurological/Psych: Oriented x3, Normal Speech ED Course And Treatment - Laboratory Results Result Diagrams: 01/18/19 13:09 01/18/19 13:09 O2 Sat by Pulse Oximetry: 97 (RA) Pulse Ox Interpretation: Normal Medical Decision Making Medical Decision Making: Plan: --Labs --UA --Zofran PO --Clonodine PO discussed with , pt to be admitted to Dr Thomas. pt is medically cleared for detox admission. 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 - Scribe Statement The provider has reviewed the documentation as recorded by the Damiribe Dipesh Casas Provider Attestation All medical record entries made by the Damiribe were at my direction and personally dictated by me. I have reviewed the chart and agree that the record accurately reflects my personal performance of the history, physical exam, medical decision making, and the department course for this patient. I have also personally directed, reviewed, and agree with the discharge instructions and disposition.
[2019-01-18 13:14] LABS: BASO # 0.1 K/uL (0.0-0.2); BASO % 1.5 % (0.0-2.0); EOS # 0.2 K/uL (0.0-0.7); EOS % 2.4 % (0.0-4.0); HEMOGLOBIN 13.5 g/dL (11.0-16.0); LYMPH % 28.7 % (20.0-40.0); MEAN CORPUSCULAR HEMOGLOBIN 33.9 pg (27.0-31.0); MEAN CORPUSCULAR HGB CONC 33.9 g/dL (33.0-37.0); MEAN PLATELET VOLUME 10.3 fL (7.2-11.7); MONO # 0.3 K/uL (0.0-0.8); MONO % 4.7 % (0.0-10.0); NEUT # 4.4 K/uL (1.8-7.0); NEUT % 62.7 % (50.0-75.0); NRBC % 0.1 % (0.0-2.0); RBC 3.99 Mil/uL (3.80-5.20); RED CELL DISTRIBUTION WIDTH 13.1 % (11.5-14.5)
[2019-01-18 13:18] LABS: HCG,QUALITATIVE URINE NEGATIVE (NEGATIVE)
[2019-01-18 13:19] LABS: SQUAMOUS EPITHIAL 1 /hpf (0-5); URINE BILIRUBIN NEGATIVE (NEGATIVE); URINE CLARITY Clear (Clear); URINE COLOR Yellow (YELLOW); URINE GLUCOSE (UA) NORMAL (Normal); URINE LEUKOCYTE ESTERASE NEG Leu/uL (Negative); URINE PROTEIN NEGATIVE (NEGATIVE); URINE UROBILINOGEN NORMAL mg/dL (0.2-1.0)
[2019-01-18 13:23] LABS: URINE BLOOD TRACE (NEGATIVE)
[2019-01-18 13:24] LABS: WHITE BLOOD COUNT 7.1 K/uL (4.8-10.8)
[2019-01-18 13:36] LABS: ALB/GLOB RATIO 1.5 (1.0-2.1); ALT/SGPT 16 U/L (9-52); AST/SGOT 31 U/L (14-36); BLOOD UREA NITROGEN 7 mg/dL (7-17); CALCIUM 9.4 mg/dl (8.6-10.4); GFR NON-AFRICAN AMERICAN > 60
[2019-01-18 13:52] LABS: BARBITURATES, UR NEGATIVE (NEGATIVE); PHENCYCLIDINE, UR NEGATIVE (NEGATIVE)
[2019-01-18 14:09] LABS: BENZODIAZEPINES, UR POSITIVE (NEGATIVE); OPIATES, UR POSITIVE (NEGATIVE)
--- NOTE | 2019-01-18 15:35 | PCM.BM ---
<Swapnil Hester - Last Filed: 01/18/19 15:33> Treatment Plan Problems - Problems identified on initial assessmt denial Date Initiated: 01/18/19 Time Initiated: 15:33 Assessment reference: NA Status: Active defensive coping Date Initiated: 01/18/19 Time Initiated: 15:34 Assessment reference: NA Status: Active hopelessness Date Initiated: 01/18/19 Time Initiated: 15:35 Assessment reference: NA Status: Active Treatment assets and liabiliti Patient Assests: cooperative, ADL independent, negotiates basic needs, cognitively intact Patient Liabilities: substance abuse, medical problems - Milieu Protocol Maintain good personal hygiene: daily Encourage regular showers, daily Remind patient to perform daily oral care, daily Assist patient to perform ADL's Conduct patient checks and document Observation sheet: Q15 minutes Maintain personal safety: every shift Educate patient to report safety concerns to staff, every shift Monitor environment for contraband/sharps Medication safety: Monitor for expected outcome, potential side effects: every shift, Assess barriers to learning: every shift, Assess readiness for medication education: every shift <Rachael Flynn - Last Filed: 01/19/19 13:04> Family Contact Family involvement: No known Family/SO - Goals for Treatment Patient goals for treatment: Complete detox and transition to long winder tender inpatient rehab. Discharge/Continuing Care - Education Needs Education Needs: Patient Medication, Patient Diagnosis/Disease Process, Patient Coping Skills, Patient Anger Management skills, Patient Placement options, Patient Community resources - Discharge Discharge Criteria: No longer exhibiting s/s of withdrawal, Reduction of target symptoms Discharge to:: Substance Abuse Rehab - Treatment Team Participation Patient/Family/SO Statement: 01/19/19 13:04 "I need long-term from here..." Discussed with Family/SO: No Was Patient/Family/SO present at Treatment Team Meeting: Yes
[2019-01-18] MEDS ORDERED: Aluminum Hydroxide/Magnesium Hydroxide Susp (30 mL) PO PRN (18:15)
[2019-01-18] MEDS ORDERED: Magnesium Hydroxide Susp 30 ml UD PO PRN (18:15)
--- NOTE | 2019-01-19 10:17 | PCM.PSYCH ---
Initial Psychiatric Evaluation - Initial Psychiatric Evaluation Type of Admission: Voluntary Legal Status: Capacity Chief Complaint (in patient's own words): "I need help" History of Present Illness and Precipitating Events: Patient is seen, chart reviewed and case discussed with staff. Patient is a 53 YO female, currently single with two children living in an apartment with her sister. She is currently unemployed on disability. Admitted to detox for heroin and Xanax use. Patient has been using drugs on and off for 20 years. She currently uses 5 bags/day, sniffing, last use 10 pm last night. Her longest sobriety was 15 years, she has since started using heroin a few years ago. She stated her father became sick and almost , which triggered her to start using drugs again. She has been to detox two previous times, last detox at [facility] July 2017. She has been to two rehab facilities. Patient reports cocaine use, 4 gram/day, Xanax 4-5 per day, marijuana 3-4 blunts/day and has a 20+ years PPD cigarette use history. Currently she is experiencing withdrawal symptoms of fevers, chills, nausea, vomiting, abdominal pain and hallucinations at times. Her COWS is 11 and increasing. She reports feeling depressed and does not want to be bothered. She also reports her cousin was killed in front of her and experiences his playing over in front of her eyes when she is depressed. Upon discharge, she plans on going to outpatient rehab and continuation of treatment. Psych Hx: She has been diagnosed with depression, but does not have an outpatient psychiatrist she follows up with, her last antidepressant medication was 2017. She denies any suicidal or homicidal ideations, however sometyimes she feels like dying and she has PTSD sxs. Fam psych: Aunt and cousin has psych conditions which she is not aware of. PHMx: Lupus, carpel tunnel, arthritis Current Medications: Active Medications Generic Name Dose Route Start Last Admin Trade Name Freq PRN Reason Stop Dose Admin Acetaminophen 650 mg 01/19/19 03:49 01/19/19 03:59 Tylenol 325mg Tab PO 650 mg Q6 PRN Administration Pain, moderate (4-7) Al Hydrox/Mg Hydrox/Simethicone 30 ml 01/18/19 18:15 Maalox 30 Ml PO TID PRN Indigestion / Heartburn Clonidine HCl 0.1 mg 04/08/19 18:14 01/18/19 21:08 Catapres PO 0.1 mg Q4H PRN Administration Symptoms of alcohol withdrawl Dicyclomine HCl 10 mg 01/18/19 18:15 Bentyl PO Q6 PRN Muscle spasm Gabapentin 400 mg 01/19/19 10:00 Neurontin PO TID JASON Hydroxyzine HCl 50 mg 01/18/19 18:20 01/18/19 21:08 Atarax PO 50 mg 06 PRN Administration Anxiety Loperamide HCl 2 mg 01/18/19 18:15 Imodium PO Q8 PRN Diarrhea Magnesium Hydroxide 30 ml 01/18/19 18:15 Milk Of Magnesia PO 01/21/19 10:01 BID PRN Constipation Ondansetron HCl 4 mg 01/18/19 18:15 01/18/19 21:08 Zofran Tab PO 4 mg Q8 PRN Administration Nausea/Vomiting Trazodone HCl 100 mg 01/18/19 18:18 01/18/19 21:08 Desyrel PO 100 mg HS PRN Administration Sleep Past Psychiatric History - Past Psychiatric History Previous Treatment History: Intensive Outpatient Pertinent Medical Hx (Current Medical&Sleep Prob, Allergies): Allergies Allergy/AdvReac Type Severity Reaction Status Date / Time mushroom Allergy Severe ANAPHYLAXIS Verified 01/18/19 10:29 Montelukast [Singulair] 10 mg PO DAILY 03/25/16 Hydroxychloroquine Sulfate [Plaquenil] 200 mg PO TID 07/27/16 Ambien 5 mg PO HS 10/26/16 Docusate [Colace] 100 mg PO DAILY #30 cap 07/21/17 Gabapentin [Neurontin] 300 mg PO TID #90 cap 07/21/17 Magnesium Oxide [Mag-Ox] 400 mg PO DAILY #14 tab 07/21/17 Pantoprazole [Protonix EC Tab] 20 mg PO DAILY #14 ect 07/21/17 traZODone [Desyrel] 100 mg PO HS PRN #30 tab 07/21/17 Review of Systems - Psychiatric Psychiatric: Abnormal Sleep Pattern, Anhedonia, Anxiety, Change in Appetite, Depression, Difficulty Concentrating. absent: Hallucinations, Homicidal Ideation, Suicidal Ideation Mental Status Examination - Personal Presentation Personal Presentation: Looks stated age - Affect Affect: Constricted - Motor Activity Motor Activity: Calm - Reliability in Providing Information Reliability in Providing Information: Good - Speech Speech: Organized - Mood Mood: Depressed, Anxious - Formal Thought Process Formal Thought Process: No Impairment - Cognitive Functions Orientation: Person, Place, Situation, Time Sensorium: Alert Attention/Concentration: Attentive Estimate of Intelligence: Average Judgement: Intact, as evidence by: Insight regarding need for hospitalization Memory: Recent intact, as evidence by: Ability to recall events of the day, Remote intact, as evidenced by: Abilit to recall sig. 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 Attend groups and activities Supportive therapy and psychoeducation WA for abstinence CBT for relapse prevention Encourage MAT Refer to rehab or IOP, and self-help groups Teach healthy lifestyle methods, i.e. diet, exercise, meditation Smoking cessation with WA Nicotine patch if needed 34 min Projected ELOS: 5-6 days - Smoking Cessation Smoking Cessation Initiated: Yes
[2019-01-19] MEDS ORDERED: Buprenorphine Hydrochloride 2 mg SL ONE ×2 (10:22→11:22)
[2019-01-19] MEDS: Multiple Vitamins Tab PO SCH (10:36)
[2019-01-20] MEDS: Buprenorphine Hydrochloride 2 mg SL SCH (09:49)
[2019-01-20] MEDS: Multiple Vitamins Tab PO SCH (09:49)
[2019-01-21] MEDS: Multiple Vitamins Tab PO SCH (10:03)
[2019-01-21] MEDS: Buprenorphine Hydrochloride 2 mg SL SCH (10:04)
--- NOTE | 2019-01-21 14:38 | PCM.PYCHPN ---
Psychiatric Progress Note - Psychiatric Progress Note Patient seen today, length of contact: 16 min Patient Chief Complaint: "I'm not good" Problems Identified/Issues Discussed: The pt is seen, chart reviewed, case discussed with staff. The pt is compliant with medications and reports no side-effects. Symptoms are improving but needs more time to stabilize. Pt attends groups and activities. Support given, psycho-education provided. After care discussed. Medication Change: Yes (detox changes daily) Medical Record Reviewed: Yes Mental Status Examination - Cognitive Function Orientation: Person, Place, Situation, Time Memory: Intact Attention: WNL Concentration: Poor Association: WNL Fund of Knowledge: WNL - Mood Mood: Depressed, Anxious - Affect Affect: Constricted - Speech Speech: Appropriate - Formal Thought Process Formal Thought Process: No Impairment - Suicidal Ideation Suicidal Ideation: No - Homicidal Ideation Homicidal Ideation: No Goal/Treatment Plan - Goal/Treatment Plan Need for Continued Stay: Discharge may exacerbated symptoms, Severe functional impairment Progress Toward Problem(s) and Goals/Treatment Plan: Taper with subutex and librium for opioids and benzos respectively Remeron for depression Gabapentin for augmentation and anxiety As needed medications All risks, benefits and alternatives of the meds discussed, and the pt agreed and understood. Attend groups and activities Supportive therapy and psychoeducation [place] for abstinence CBT for relapse prevention Encourage MAT Refer to rehab or IOP, and self-help groups Teach healthy lifestyle methods, i.e. diet, exercise, meditation Smoking cessation with IL Nicotine patch if needed
--- NOTE | 2019-01-21 14:40 | PCM.PYCHPN ---
Psychiatric Progress Note - Psychiatric Progress Note Patient seen today, length of contact: 17 min Patient Chief Complaint: "So so" Problems Identified/Issues Discussed: The pt is seen, chart reviewed, case discussed with staff. Support and psychoeducation given, CBT and FL used briefly Pt is improving slowly and needs more time, still has ongoing symptoms. No SEs from medications, risks discussed. After care discussed Medication Change: Yes (detox changes daily) Medical Record Reviewed: Yes Mental Status Examination - Cognitive Function Orientation: Person, Place, Situation, Time Memory: Intact Attention: WNL Concentration: Poor Association: WNL Fund of Knowledge: WNL - Mood Mood: Depressed, Anxious - Affect Affect: Constricted - Speech Speech: Appropriate - Formal Thought Process Formal Thought Process: No Impairment - Suicidal Ideation Suicidal Ideation: No - Homicidal Ideation Homicidal Ideation: No Goal/Treatment Plan - Goal/Treatment Plan Need for Continued Stay: Discharge may exacerbated symptoms, Severe functional impairment Progress Toward Problem(s) and Goals/Treatment Plan: Taper with subutex and librium for opioids and benzos respectively Remeron for depression Gabapentin for augmentation and anxiety As needed medications All risks, benefits and alternatives of the meds discussed, and the pt agreed and understood. Attend groups and activities Supportive therapy and psychoeducation FL for abstinence CBT for relapse prevention Encourage MAT Refer to rehab or IOP, and self-help groups Teach healthy lifestyle methods, i.e. diet, exercise, meditation Smoking cessation with FL Nicotine patch if needed - Smoking Cessation Smoking Cessation Initiated: No
[2019-01-21] MEDS ORDERED: Magnesium Hydroxide Susp 30 ml UD PO PRN (19:12)
[2019-01-22] MEDS: Buprenorphine Hydrochloride 2 mg SL SCH (09:13)
[2019-01-22] MEDS: Multiple Vitamins Tab PO SCH (09:13)
[2019-01-22 09:20] VITALS: RESP 18
--- NOTE | 2019-01-22 14:41 | PCM.PYCHPN ---
Psychiatric Progress Note - Psychiatric Progress Note Patient seen today, length of contact: 17 min Patient Chief Complaint: "So so" Problems Identified/Issues Discussed: The pt is seen, chart reviewed, case discussed with staff. Support and psychoeducation given, CBT and OR used briefly Pt is improving slowly and needs more time, still has ongoing symptoms. No SEs from medications, risks discussed. After care discussed Medication Change: Yes (detox changes daily) Medical Record Reviewed: Yes Mental Status Examination - Cognitive Function Orientation: Person, Place, Situation, Time Memory: Intact Attention: WNL Concentration: Poor Association: WNL Fund of Knowledge: WNL - Mood Mood: Depressed, Anxious - Affect Affect: Constricted - Speech Speech: Appropriate - Formal Thought Process Formal Thought Process: No Impairment - Suicidal Ideation Suicidal Ideation: No - Homicidal Ideation Homicidal Ideation: No Goal/Treatment Plan - Goal/Treatment Plan Need for Continued Stay: Discharge may exacerbated symptoms, Severe functional impairment Progress Toward Problem(s) and Goals/Treatment Plan: Taper with subutex and librium for opioids and benzos respectively Remeron for depression Gabapentin for augmentation and anxiety As needed medications All risks, benefits and alternatives of the meds discussed, and the pt agreed and understood. Attend groups and activities Supportive therapy and psychoeducation OR for abstinence CBT for relapse prevention Encourage MAT Refer to rehab or IOP, and self-help groups Teach healthy lifestyle methods, i.e. diet, exercise, meditation Smoking cessation with OR Nicotine patch if needed
[2019-01-23] MEDS: Multiple Vitamins Tab PO SCH (09:25)
[2019-01-23] MEDS: Buprenorphine Hydrochloride 2 mg SL SCH (09:25)
[2019-01-23 12:18] VITALS: BP 137/84; PULSE 80; TEMP 97.6; O2SAT 99
--- NOTE | 2019-01-23 23:15 | PCM.PYCHDC ---
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 Reason for request. 2. Findings. 3. Follow-up Summary of Hospital Course include:: 1. Description of specific treatment plan utilized for patients during their course of treatmen. 2. Summarize the time- course for resolution of acute symptoms and/or regressed behaviors. 3. Describe issues identified and worked on during hospitalization. 4. Describe medication utilized. 5. Describe medical problems identified and treated. 6. Reassessment of suicide risk Summary of Hospital Course: Patient is seen, chart reviewed and case discussed with staff. Patient is a 53 YO female, currently single with two children living in an apartment with her sister. She is currently unemployed on disability. Admitted to detox for heroin and Xanax use. Patient has been using drugs on and off for 20 years. She currently uses 5 bags/day, sniffing, last use 10 pm last night. Her longest sobriety was 15 years, she has since started using heroin a few years ago. She stated her father became sick and almost , which triggered her to start using drugs again. She has been to detox two previous times, last detox at [facility] July 2017. She has been to two rehab facilities. Patient reports cocaine use, 4 gram/day, Xanax 4-5 per day, marijuana 3-4 blunts/day and has a 20+ years PPD cigarette use history. Currently she is experiencing withdrawal symptoms of fevers, chills, nausea, vomiting, abdominal pain and hallucinations at times. Her COWS is 11 and increasing. She reports feeling depressed and does not want to be bothered. She also reports her cousin was killed in front of her and experiences his playing over in front of her eyes when she is depressed. Upon discharge, she plans on going to outpatient rehab and continuation of treatment. Psych Hx: She has been diagnosed with depression, but does not have an outpatient psychiatrist she follows up with, her last antidepressant medication was 2017. She denies any suicidal or homicidal ideations, however sometyimes she feels like dying and she has PTSD sxs. Fam psych: Aunt and cousin has psych conditions which she is not aware of. PHMx: Lupus, carpel tunnel, arthritis During her stay in the hospital patient was treated with Librium and Subutex taper for alcohol and opiate withdrawal symptoms. She was started on her antidepressant medications and other PRN medications. Patient was attending groups and other activities on the unit. With above treatment patient started feeling better. Today patient was stable, had no withdrawal symptoms and was ready for discharge from the hospital. At the time of evaluation and discharge, patient was awake, alert and oriented x3, had no delusions, no auditory or visual hallucinations, no suicidal ideations or homicidal ideations. Patient was discharged in a stable condition. - Final Diagnosis (DSM 5) Condition upon Discharge: GOOD Disposition: HOME/ ROUTINE Follow-up Treatment Plan: [facility] Prescriptions/Medication Reconciliation: Gabapentin [Neurontin] 400 mg PO TID #90 cap Mirtazapine [Remeron] 30 mg PO HS #30 tab - Smoking Cessation Smoking Cessation Medication prescribed: No - Antipsychotic Medications Pt discharged on 2 or more routine antipsychotic medications: No
== END 2019-01-23 10:00 | disposition home or self-care (01) | DRG 744 ==
LOC: C.ER 10:13 → C.7D 15:06
PROVIDERS: ADMIT Psychiatry & Neurology Psychiatry; ATTEND Psychiatry & Neurology Psychiatry
PROC: HZ2ZZZZ Detoxification Services for Substance Abuse Treatment (ICD-10-PCS; principal; 2019-01-18)
PROC: HZ59ZZZ Individual Psychotherapy for Substance Abuse Treatment, Supportive (ICD-10-PCS; 2019-01-18)
PROC: GZ3ZZZZ Medication Management (ICD-10-PCS; 2019-01-18)
PROC: HZ46ZZZ Group Counseling for Substance Abuse Treatment, Psychoeducation (ICD-10-PCS; 2019-01-18)
DX: F11.23 Opioid dependence with withdrawal (principal); F33.2 Major depressive disorder, recurrent severe without psychotic features; F13.239 Sedative, hypnotic or anxiolytic dependence with withdrawal, unspecified; F14.90 Cocaine use, unspecified, uncomplicated; F43.10 Post-traumatic stress disorder, unspecified; F17.210 Nicotine dependence, cigarettes, uncomplicated; E03.9 Hypothyroidism, unspecified; M32.9 Systemic lupus erythematosus, unspecified; N18.9 Chronic kidney disease, unspecified; Z87.442 Personal history of urinary calculi